=== PATIENT | male | born 1975 | race Caucasian/White ===

== ENCOUNTER → 2016-11-16 | Outpatient (CLI) | payer BC | LOC: US 13:30 → KOH-I 16:24 | DX: N50.819 Testicular pain, unspecified (principal); N43.3 Hydrocele, unspecified | CPT/HCPCS: 76870 ==

== ENCOUNTER → 2016-12-01 | Outpatient (CLI) | payer BC | LOC: CT 08:21 | DX: R10.30 Lower abdominal pain, unspecified (principal); K44.9 Diaphragmatic hernia without obstruction or gangrene; K76.0 Fatty (change of) liver, not elsewhere classified; N32.89 Other specified disorders of bladder; Z98.890 Other specified postprocedural states; N43.3 Hydrocele, unspecified | CPT/HCPCS: Q9962 ==

== ENCOUNTER → 2021-03-19 | Outpatient (CLI) | payer BC ==
[~2021-03-19] MED LIST: ACETAMINOPHEN-1 EAC1 PO; COLCHICINE0.6 MG PO; GABAPENTIN800 MG PO; HYDROCODON-ACE1 EAC2 PO; LEVOTHYROXINE25 MCG PO; ONDANSETRON HCL8 MG PO; RESTORIL 15 MG15 MG GT; SIMVASTATIN20 MG PO; TAMSULOSIN HCL0.4 MG PO; TESTOSTERO200 MG/1 M IM; TIZANIDINE HCL4 MG PO; UROXATRAL 10 MG10 MG PO; VENLAFAXINE H37.5 M1 PO; VITAMIN D21250 MCG PO; ZYLOPRIM 300 M300 MG PO
== END ==
LOC: KOH-I 13:37
DX: M79.641 Pain in right hand (principal); M79.644 Pain in right finger(s)
CPT/HCPCS: 73130; 73140

== ENCOUNTER → 2021-06-26 | Outpatient (CLI) | payer BC | LOC: KOH-I 11:00 | DX: M54.6 Pain in thoracic spine (principal) | CPT/HCPCS: 72070 ==

== ENCOUNTER → 2022-04-09 | Outpatient (CLI) | payer BC | LOC: KOH-I 15:12 | DX: Z98.1 Arthrodesis status (principal); M25.78 Osteophyte, vertebrae | CPT/HCPCS: 72040 ==